=== PATIENT | female | born 1935 | race Caucasian/White ===

== ENCOUNTER → 2016-10-09 | Outpatient (CLI) | payer MEDICARE, OTHER ==
[~2016-10-09] MED LIST: DIURETIC; ESTR0.3T; OMEG1CAP26 PO; ONDAN4ODT PO; SIMV40TA2
--- NOTE | 2016-10-09 18:58 | Diagnostic Imaging Report ---
INDICATION: Digital mammogram bilateral screening. This study was compared to the prior exams of 10/07/15, 10/06/14 and 10/05/13. At this time, there are no current complaints. The current study was also evaluated with a Computer Aided Detection (CAD) system. FINDINGS: There are scattered fibroglandular densities in both breasts which could obscure a lesion. Overall, there does not appear to have been any significant change when compared to the prior exam. No primary or secondary sign of malignancy is noted. IMPRESSION: There is no radiographic evidence for malignancy. ACR BI-RADS Category 1: Negative. Result letter will be mailed to the patient. Note: At least 10% of breast cancer is not imaged by mammography. Dictated by: Dictated on workstation # [id number]
== END ==
LOC: RAD 09:23
PROVIDERS: ATTEND Nurse Practitioner Family
DX: Z12.31 Encounter for screening mammogram for malignant neoplasm of breast (principal)

== ENCOUNTER 2017-05-08 06:09 | Outpatient (CLI) | payer MEDICARE, OTHER ==
[~2017-05-08] VITALS: Ht 167.6 cm; Wt 68.9 kg
[~2017-05-08 06:09] MED LIST changes: -ESTR0.3T; +ESTR0.3T PO; -SIMV40TA2; +SIMV40TA2 PO
[2017-05-08] MEDS ORDERED: ASPI-586 PO (14:18)
[2017-05-08] MEDS ORDERED: TRIA1TAB3 PO (14:18)
[2017-05-08] MEDS ORDERED: CHOL100045 PO (14:18)
[2017-05-08] MEDS ORDERED: MELO15TA39 PO (14:18)
== END 2017-05-08 14:20 ==
LOC: PREOP 06:09
PROVIDERS: ATTEND Internal Medicine
DX: Z01.818 Encounter for other preprocedural examination (principal); Z12.11 Encounter for screening for malignant neoplasm of colon

== ENCOUNTER 2017-05-10 08:08 | Day surgery (SDC) | payer MEDICARE, OTHER ==
--- NOTE | 2017-05-03 09:17 | HISTORY AND PHYSICAL ---
DATE OF SERVICE: HISTORY OF PRESENT ILLNESS: The patient is an 81-year-old white female referred for screening colonoscopy by Dr. Fish. She last underwent screening colonoscopy per Dr. Castillo 12 years ago and reports she had no problems with the procedure and she does not believe she had any polyps at that time. She is not aware of any family history for colon cancer or colon polyps that she is aware of. She denies any change in bowel habit and has noted no bright red blood per rectum or melena. Appetite has been normal and her weight reportedly has been stable. PAST MEDICAL HISTORY: Hypertension and hyperlipidemia with no known history of coronary artery disease. She also has history of osteoarthritis. MEDICATIONS ON ADMISSION: Include Premarin 0.3 mg daily, Dyazide one tablet daily, simvastatin 40 mg daily, Meloxicam 7.5 mg b.i.d., fish oil 1200 mg 3 times daily and magnesium 150 mg b.i.d. SOCIAL HISTORY: She has no past drinking or smoking history. Retired. PHYSICAL EXAMINATION: GENERAL: Reveals a white female appearing younger than her stated age. VITAL SIGNS: Blood pressure was 150/64, weight 150.6 pounds. HEENT: Unremarkable. Sclerae are not icteric. She is a Mallampati class II. Oropharyngeal configuration with no exudate. NECK: Revealed no JVD, adenopathy or bruits. CHEST: Clear. CARDIOVASCULAR: Reveals regular rate and rhythm without murmur, S3 or S4. ABDOMEN: Soft, supple without mass, organomegaly or tenderness. PAST SURGICAL HISTORY: Significant for total abdominal hysterectomy for benign fibroids with dysfunctional uterine bleeding and a tubal ligation. ASSESSMENT AND PLAN: The patient was set up for screening colonoscopy on 05/10/2017. Prep instructions with Suprep kit were given and questions were answered. Discussed that if this colonoscopy revealed no evidence for neoplasia, would not likely be recommending future screening colonoscopy. I thank you for the referral of this pleasant lady. Job ID: [id number] DocumentID: [id number] Dictated Date: 05/01/2017 19:59:16 Enroute Controller Date: 05/01/2017 21:25:50 Dictated By: KARLEE INGRAM MD [facility] CENTERLaurence
[~2017-05-10] VITALS: Ht 167.6 cm; Wt 68.9 kg
[~2017-05-10 08:08] MED LIST changes: +ASPI-586 PO; +CHOL100045 PO; +MELO15TA39 PO; +TRIA1TAB3 PO
--- OUTSIDE RECORDS SUMMARY | 2017-05-10 08:12 | XMS REPORT | Continuity of Care Document ---
Author Author [facility] Organization [facility] Address Unknown Phone Unavailable Allergies Active Description Code Type Severity Reaction Onset Reported/Identified Relationship to Patient Clinical Status Yes NKDA NKDA Mild N/A 03/16/2009 Yes No Known Drug Allergies [id number] Drug Allergy Unknown N/ A 03/17/2009 Medications Problems Date Dx Coded Attending Type Code Diagnosis Diagnosed By 09/16/2010 Ot 558.9 09/16/2010 Ot 787.91 10/06/2014 Ot V76.12 10/06/2014 Ot V76.12 10/06/2014 Ot V76.12 10/06/2014 Ot V76.12 10/06/2014 DAVE LATHAM, NERISSA Gutiérrez Ot V76.12 02/12/2015 DAVE LATHAM, NERISSA Gutiérrez Ot V76.12 05/20/2015 Ot V76.12 05/20/2015 DAVE LATHAM, NERISSA Gutiérrez Ot V76.12 05/20/2015 NERISSA ACOSTA MD Ot V76.12 05/24/2015 KI LATHAM, JACKIE Nicole Ot 733.90 06/10/2015 KI LATHAM, JACKIE Nicole Ot 241.0 06/10/2015 KI LATHAM, JACKIE A Ot 782.2 06/23/2015 KI LATHAM, JACKIE A Ot 241.0 06/23/2015 KI LATHAM, JACKIE A Ot 782.2 07/08/2015 KI LATHAM, JACKIE A Ot 241.0 07/08/2015 KI ALTHAM, JACKIE A Ot 782.2 07/08/2015 KI LATHAM, JACKIE A Ot 241.0 07/08/2015 KI LATHAM, JACKIE A Ot 782.2 07/14/2015 KI LATHAM, JACKIE A Ot 733.90 08/02/2015 KI LATHAM, JACKIE A Ot 733.90 08/15/2015 KI LATHAM, JACKIE A Ot 241.0 08/15/2015 KI LATHAM, JACKIE Nicole Ot 782.2 10/14/2015 Ot V76.12 10/14/2015 DAVE LATHAM, NERISSA Gutiérrez Ot V76.12 10/14/2015 DAVE LATHAM, NERISSA Gutiérrez Ot V76.12 10/14/2015 KI LATHAM, JACKIE A Ot 733.90 10/14/2015 KI LATHAM, JACKIE A Ot 241.0 10/14/2015 KI LATHAM, JACKIE A Ot 782.2 10/14/2015 DEVYN JUNG SAMPLE CASE PORTER Ot Z12.31 11/02/2015 DEVYN JUNG SAMPLE CASE PORTER Ot Z12.31 04/04/2016 Ot V76.12 OTH SCREEN MAMMO-MALIGN NEOPLASM OF DOROTHY 04/04/2016 NERISSA ACOSTA MD Ot V76.12 OTH SCREEN MAMMO-MALIGN NEOPLASM OF DOROTHY 04/04/2016 DAVE LATHAM, NERISSA Gutiérrez Ot V76.12 OTH SCREEN MAMMO-MALIGN NEOPLASM OF DOROTHY 04/04/2016 KI LATHAM, JACKIE A Ot 733.90 BONE CARTILAGE DIS NOS 04/04/2016 KI LATHAM, JACKIE Nicole Ot 241.0 NONTOX UNINODULAR GOITER 04/04/2016 KI LATHAM, JACKIE Nicole Ot 782.2 LOCAL SUPRFICIAL SWELLNG 04/04/2016 DEVYN JUNGP Ot Z12.31 ENCNTR SCREEN MAMMOGRAM FOR MALIGNANT NE 04/04/2016 Ot V76.12 OTH SCREEN MAMMO-MALIGN NEOPLASM OF DOROTHY 04/04/2016 Ot V76.12 OTH SCREEN MAMMO-MALIGN NEOPLASM OF DOROTHY 04/04/2016 NERISSA ACOSTA MD Ot V76.12 OTH SCREEN MAMMO-MALIGN NEOPLASM OF DOROTHY 04/04/2016 NERISSA ACOSTA MD Ot V76.12 OTH SCREEN MAMMO-MALIGN NEOPLASM OF DOROTHY 04/04/2016 KI LATHAM, JACKIE A Ot 733.90 BONE CARTILAGE DIS NOS 04/04/2016 JACKIE EMERSON MD A Ot 241.0 NONTOX UNINODULAR GOITER 04/04/2016 JACKIE EMERSON MD Ot 782.2 LOCAL SUPRFICIAL SWELLNG 04/04/2016 DEVYN JUNG SAMPLE CASE PORTER Ot Z12.31 ENCNTR SCREEN MAMMOGRAM FOR MALIGNANT NE 04/27/2016 DEVYN JUNG SAMPLE CASE PORTER Ot E04.2 NONTOXIC MULTINODULAR GOITER 04/27/2016 DEVYN JUNGP Ot J35.9 CHRONIC DISEASE OF TONSILS AND ADENOIDS, 04/27/2016 DEVYN JUNG SAMPLE CASE PORTER Ot R22.2 LOCALIZED SWELLING, MASS AND LUMP, TRUNK 05/18/2016 DEVYN JUNGP Ot E04.2 NONTOXIC MULTINODULAR GOITER 05/18/2016 DEVYN JUNGP Ot J35.9 CHRONIC DISEASE OF TONSILS AND ADENOIDS, 05/18/2016 DEVYN JUNGP Ot R22.2 LOCALIZED SWELLING, MASS AND LUMP, TRUNK 10/04/2016 Ot V76.12 OTH SCREEN MAMMO-MALIGN NEOPLASM OF DOROTHY 10/04/2016 NERISSA ACOSTA MD Ot V76.12 OTH SCREEN MAMMO-MALIGN NEOPLASM OF DOROTHY 10/04/2016 NERISSA ACOSTA MD Ot V76.12 OTH SCREEN MAMMO-MALIGN NEOPLASM OF DOROTHY 10/04/2016 KI LATHAM, JACKIE Nicole Ot 733.90 BONE CARTILAGE DIS NOS 10/04/2016 KI LATHAM, JACKIE Nicole Ot 241.0 NONTOX UNINODULAR GOITER 10/04/2016 KI LATHAM, JACKIE Nicole Ot 782.2 LOCAL SUPRFICIAL SWELLNG 10/04/2016 DEVYN JUNG Ot Z12.31 ENCNTR SCREEN MAMMOGRAM FOR MALIGNANT NE 10/04/2016 DEVYN JUNGP Ot E04.2 NONTOXIC MULTINODULAR GOITER 10/04/2016 DEVYN JUNGP Ot J35.9 CHRONIC DISEASE OF TONSILS AND ADENOIDS, 10/04/2016 DEVYN JUNG Ot R22.2 LOCALIZED SWELLING, MASS AND LUMP, TRUNK 10/04/2016 Ot V76.12 OTH SCREEN MAMMO-MALIGN NEOPLASM OF DOROTHY 10/04/2016 Ot V76.12 OTH SCREEN MAMMO-MALIGN NEOPLASM OF DOROTHY 10/04/2016 NERISSA ACOSTA MD Ot V76.12 OTH SCREEN MAMMO-MALIGN NEOPLASM OF DOROTHY 10/04/2016 DAVE LATHAM, NERISSA Gutiérrez Ot V76.12 OTH SCREEN MAMMO-MALIGN NEOPLASM OF DOROTHY 10/04/2016 KI LATHAM, JACKIE Nicole Ot 733.90 BONE CARTILAGE DIS NOS 10/04/2016 KI LATHAM, JACKIE Nicole Ot 241.0 NONTOX UNINODULAR GOITER 10/04/2016 KI LATHAM, JACKIE Nicole Ot 782.2 LOCAL SUPRFICIAL SWELLNG 10/04/2016 DEVYN JUNG SAMPLE CASE PORTER Ot Z12.31 ENCNTR SCREEN MAMMOGRAM FOR MALIGNANT NE 10/04/2016 DEVYN JUNG SAMPLE CASE PORTER Ot E04.2 NONTOXIC MULTINODULAR GOITER 10/04/2016 DEVYN JUNG SAMPLE CASE PORTER Ot J35.9 CHRONIC DISEASE OF TONSILS AND ADENOIDS, 10/04/2016 DEVYN JUNG SAMPLE CASE PORTER Ot R22.2 LOCALIZED SWELLING, MASS AND LUMP, TRUNK 10/10/2016 DEVYN JUNG SAMPLE CASE PORTER Ot Z12.31 ENCNTR SCREEN MAMMOGRAM FOR MALIGNANT NE 10/10/2016 DEVYN JUNG SAMPLE CASE PORTER Ot Z12.31 ENCNTR SCREEN MAMMOGRAM FOR MALIGNANT NE 11/06/2016 DEVYN JUNG SAMPLE CASE PORTER Ot Z12.31 ENCNTR SCREEN MAMMOGRAM FOR MALIGNANT NE Procedures Results Encounters ACCT No. Visit Date/Time Discharge Status Pt. Type Provider Facility Loc./Unit Complaint [id number] 10/09/2016 09:23:00 2016 23:59:59 CLS Outpatient DEVYN JUNG [facility] RAD SCREENING [id number] 04/04/2016 10:31:00 2015 23:59:59 CLS Outpatient DEVYN JUNG [facility] RAD THYROID NODULES,L SUBMANDIBULAR MASS [id number] 10/07/2015 13:03:00 2015 23:59:59 CLS Outpatient DEVNY JUNGP [facility] RAD SCREENING [id number] 05/20/2015 08:17:00 2014 23:59:59 CLS Outpatient JACKIE EMERSON MD [facility] RAD STERNOCLAVICULAR JOINT EFFUISION, THYROID NODUELS [id number] 05/19/2015 14:37:00 2014 23:59:59 CLS Outpatient KI LATHAM, JACKIE Nicole [facility] RAD 733.90 DISORDER OF BONE,719.51 STIFFNESS OF JOINT [id number] 10/06/2014 10:31:00 2014 23:59:59 CLS Outpatient NERISSA ACOSTA MD [facility] RAD SCREENING [id number] 10/05/2013 09:52:00 2013 23:59:59 CLS Outpatient NERISSA ACOSTA MD [facility] RAD SCREENING [id number] 05/10/2017 09:15:00 PEN Preadpina INGRAM MD, KARELE Dang [facility] ENDO SCREENING [id number] 10/13/2012 10:04:00 Document Registration [id number] 10/10/2011 13:00:00 Document Registration [id number] 10/09/2010 09:36:00 Document Registration [id number] 09/16/2010 11:15:00 Document Registration [id number] 10/06/2009 09:59:00 Document Registration
[2017-05-10] MEDS ORDERED: 1/2 NS IV SOLUTION 1,000 ML IV STA (08:19)
[2017-05-10 08:29] VITALS: BP 187/74
[2017-05-10] MEDS ORDERED: LIDOCAINE JELLY 2% (XYLOCAINE) 5 ML TUBE MM PRN (08:30)
[2017-05-10] MEDS ORDERED: fentaNYL INJECTION 100 MCG/2 ML AMP ONE (09:44)
[2017-05-10] MEDS ORDERED: LIDOCAINE JELLY 2% (XYLOCAINE) 5 ML TUBE ONE (09:44)
[2017-05-10] MEDS ORDERED: MIDAZOLAM 2 MG/2 ML (VERSED) VIAL ONE ×2 (09:44)
[2017-05-10] MEDS: fentaNYL INJECTION 100 MCG/2 ML AMP IVP PRN ×2 (09:55→10:08)
[2017-05-10] MEDS: MIDAZOLAM 2 MG/2 ML (VERSED) VIAL IVP PRN ×2 (09:58→10:09)
[2017-05-10 10:45] VITALS: BP 162/71
[2017-05-10 11:15] VITALS: BP 160/75
[2017-05-10 12:10] VITALS: BP 160/75
--- NOTE | 2017-05-11 05:05 | OPERATIVE REPORT ---
DATE OF SERVICE: COLONOSCOPY SUMMARY INDICATION FOR THE PROCEDURE: Screening . The patient was placed in the left lateral decubitus position. Prior to undergoing colonoscopy, digital rectal evaluation was performed. Anal sphincter tone was normal and the perianal reflex was intact. The colonoscope was inserted into the rectum under direct visualization, could only advanced to what was likely the mid sigmoid colon due to severe diverticular disease with corkscrewing of the colon, haustral hypertrophy, and narrowing compatible with a benign partial stricture. There was no evidence to suggest acute diverticulitis. The patient denies any problems with abdominal bloating or abdominal pain. No other abnormalities were noted in the rectum and the visualized portion of the sigmoid colon. ASSESSMENT: Severe diverticular disease with likely benign partial stricture formation noted in the mid sigmoid colon without evidence for acute diverticulitis. Considering this patient's age, significant risk for perforation even with barium enema evaluation in an individual who has no family history for colon cancer and a previous colonoscopy that was unremarkable 10 years ago. I would not advocate future colonoscopy barium evaluation. I discussed the fact that obviously could not guarantee that significant pathology including cancer was not present in the portion of her colon not visualized; however, her risk is extremely small and risks of further investigation outweigh potential benefits in my estimation. The patient was quite comfortable with "leaving well enough alone." We did discussed signs and symptoms of intestinal obstruction which she denies. I thank you for the referral of this pleasant lady. Job ID: [id number] DocumentID: [id number] Dictated Date: 05/10/2017 13:15:20 Construction Job Titles Date: 05/11/2017 00:57:29 Dictated By: KARLEE INGRAM MD MTDD
== END 2017-05-10 12:10 | disposition home or self-care (01) ==
LOC: ENDO 08:08
PROVIDERS: ATTEND Internal Medicine
DX: Z12.11 Encounter for screening for malignant neoplasm of colon (principal); K57.30 Diverticulosis of large intestine without perforation or abscess without bleeding; I10 Essential (primary) hypertension; E78.5 Hyperlipidemia, unspecified; M19.91 Primary osteoarthritis, unspecified site; Z79.899 Other long term (current) drug therapy

== ENCOUNTER → 2017-10-15 | Outpatient (CLI) | payer MEDICARE, OTHER ==
--- NOTE | 2017-10-15 12:08 | Diagnostic Imaging Report ---
Indication: Routine screening. Comparison: Comparison is made prior study from 10/09/2016 and 10/07/2015. The current study was also evaluated with a Computer Aided Detection (CAD) system. Findings: Both breasts demonstrated moderate parenchymal heterogeneity and increased density, limiting the sensitivity of mammography. Benign-appearing parenchymal and vascular calcifications are noted bilaterally. Benign-appearing nodular densities are identified in the upper outer aspects of each breast, likely representing intramammary lymph nodes. No spiculated mass or malignant-appearing microcalcifications are seen. The axillae are unremarkable. Impression: BI-RADS category 2 No mammographic features suspicious for malignancy are identified. ACR BI-RADS Category 2: Benign findings. Result letter will be mailed to the patient. Note: At least 10% of breast cancer is not imaged by mammography. Dictated on workstation # [id number]
== END ==
LOC: RAD 09:53
PROVIDERS: ATTEND Nurse Practitioner Family
DX: Z12.31 Encounter for screening mammogram for malignant neoplasm of breast (principal)
CPT/HCPCS: 77067

== ENCOUNTER 2019-06-05 12:10 | Emergency (ER) | payer MEDICARE, OTHER ==
[~2019-06-05] VITALS: Ht 66.5 cm; Wt 65.5 kg
[2019-06-05 12:47] LABS: BASOPHILS % (AUTO) 0 % (0-10); EOSINOPHILS # (AUTO) 0.1 10^3/uL (0.0-0.3); EOSINOPHILS % (AUTO) 1 % (0-10); HEMATOCRIT 47 % (35-52); HEMOGLOBIN 14.9 G/DL (11.5-16.0); LYMPHOCYTES # (AUTO) 1.7 X 10^3 (1.0-4.0); LYMPHOCYTES % (AUTO) 15 % (12-44); MEAN CORPUSCULAR HEMOGLOBIN 27 PG (25-34); MEAN CORPUSCULAR HGB CONC 32 G/DL (32-36); MEAN CORPUSCULAR VOLUME 85 FL (80-99); MEAN PLATELET VOLUME 9.6 FL (7.4-10.4); MONOCYTES # (AUTO) 1.3 X 10^3 (0.0-1.0); MONOCYTES % (AUTO) 12 % (0-12); NEUTROPHILS # (AUTO) 7.8 X 10^3 (1.8-7.8); NEUTROPHILS % (AUTO) 72 % (42-75); PLATELET COUNT 245 10^3/uL (130-400); RED CELL DISTRIBUTION WIDTH 13.6 % (10.0-14.5); WHITE BLOOD COUNT 10.8 10^3/uL (4.3-11.0)
[2019-06-05 12:55] LABS: BILIRUBIN,URINE NEGATIVE (NEGATIVE); CLARITY,URINE CLEAR; COLOR,URINE YELLOW; GLUCOSE, URINE (UA) NEGATIVE (NEGATIVE); KETONES,URINE NEGATIVE (NEGATIVE); LEUKOCYTE ESTERASE ,URINE 1+ (NEGATIVE); NITRITE,URINE NEGATIVE (NEGATIVE); PH,URINE 7 (5-9); PROTEIN,URINE 1+ (NEGATIVE); UROBILINOGEN,URINE NORMAL (NORMAL)
[2019-06-05 12:59] LABS: PROTHROMBIN TIME PATIENT 13.6 SEC (12.2-14.7)
[2019-06-05 13:04] LABS: CALCIUM 9.6 MG/DL (8.5-10.1); CREATININE SERUM 1.15 MG/DL (0.60-1.30); POTASSIUM 3.8 MMOL/L (3.6-5.0)
[2019-06-05 13:06] LABS: BACTERIA,URINE NEGATIVE /HPF; HYALINE CASTS, URINE 0-2 /LPF; WBC,URINE 0-2 /HPF
--- NOTE | 2019-06-05 13:25 | ED GI ---
General Chief Complaint: Abdominal/GI Problems Stated Complaint: NVD Nursing Triage Note: PT ARRIVED PER EMS, PT CO OF NAUSEA, VOMITING AND DIARRHEA INSURANCE CLAIMS ASSISTANT, PT HAS SL IN IV IN PLACE IN L AC BY EMS NS INFUSING. PT INC OF STOOL AT THIS X. PT IS A AND O X 3 Sepsis Screen: No Definite Risk Source of Information: Patient Exam Limitations: No Limitations History of Present Illness Date Seen by Provider: Jun 05, 2019 Time Seen by Provider: 12:18 Initial Comments Here with report of acute episode of nausea, vomiting and diarrhea. Also incontinent of urine. Patient reports that she was standing there when all of a sudden this happened. She reports that she had gone to [employer] and bought pancakes. After eating the pancakes she had the episode. EMS was summoned because she was quite weak and brought her here. Per EMS, Lauren reports that none of this happened like that and the daughter is concerned about the patient's ability to make her own decisions and reportedly wanted consideration for placement in a jail. Patient denies any discomfort currently except for she is in her pants that she had the incontinent stool in. Timing/Duration: 1/2 Hour, Gone Now Severity/Quality: Moderate, Cramping Location: Generalized Abdomen Radiation: No Radiation Activities at Onset: None Modifying Factors: Worsens With Eating; Improves With Resting Associated Symptoms: No Back Pain, No Chest Pain, No Fever/Chills; Nausea/Vomiting; No Shortness of Air; Weakness Allergies and Home Medications Allergies Coded Allergies: No Known Drug Allergies (Verified , 03/17/09) Uncoded Allergies: NKDA (Allergy, Mild, 03/16/09) Home Medications Cholecalciferol (Vitamin D3) 1,000 Unit Tablet, 1,000 UNIT PO DAILY, (Reported) Estrogens Conjugated 0.3 Mg Tab, 0.3 MG PO DAILY, (Reported) Meloxicam 15 Mg Tablet, 7.5 MG PO BID, (Reported) [place]-3/Dha/Epa/Fish Oil 1 Each Capsule, 2 EACH PO BID, (Reported) Simvastatin 40 Mg Tablet, 40 MG PO HS, (Reported) Triamterene/Hydrochlorothiazid 1 Each Tablet, 1 EACH PO DAILY, (Reported) Patient Home Medication List Home Medication List Reviewed: Yes Review of Systems Review of Systems Constitutional: see HPI; No chills, No fever EENTM: No Symptoms Reported Respiratory: No Symptoms Reported Cardiovascular: No Symptoms Reported Gastrointestinal: Abdominal Pain, Diarrhea, Nausea, Vomiting Genitourinary: No Symptoms Reported Musculoskeletal: no symptoms reported Skin: no symptoms reported Psychiatric/Neurological: Weakness, Other (confusion) Endocrine: No Symptoms Reported All Other Systems Reviewed Negative Unless Noted: Yes Past Oqduofe-Qmekkw-Cerzpr Hx Past Med/Social Hx: Reviewed Nursing Past Med/Soc Hx Patient Social History Alcohol Use: Denies Use Recreational Drug Use: No Smoking Status: Never a Smoker Recent Foreign Travel: No Contact w/Someone Who Travel: No Recent Infectious Disease Expo: No Recent Hopitalizations: No Seasonal Allergies Seasonal Allergies: No Past Medical History Surgeries: Yes Hysterectomy, Tubal Ligation Cardiac: Yes Hypertension Reproductive Disorders: No Gastrointestinal: No Musculoskeletal: No Arthritis Family Medical History Reviewed Nursing Family Hx No Pertinent Family Hx Physical Exam Vital Signs Vital Signs - First Documented 06/05/19 12:10 Temp 35.5 Pulse 76 Resp 16 B/P (MAP) 171/94 (119) Capillary Refill : Less Than 3 Seconds Height/Weight/BMI Height: 5'6.00" Weight: 152lbs. 0.0oz. 68.785435pq; 148.00 BMI Method: General Appearance: WD/WN, no apparent distress HEENT: PERRL/EOMI, pharynx normal Neck: full range of motion, supple Respiratory: lungs clear, normal breath sounds Cardiovascular: regular rate, rhythm, no murmur Gastrointestinal: non tender, soft Extremities: non-tender, normal inspection Back: normal inspection, no CVA tenderness, no vertebral tenderness Neurologic/Psychiatric: alert, oriented x 3 Skin: normal color, warm/dry Focused Exam Lactate Level 06/05/19 12:55: Lactic Acid Level 1.19 Lactic Acid Level Laboratory Tests Test 06/05/19 12:55 Lactic Acid Level 1.19 MMOL/L (0.50-2.00) Progress/Results/Core Measures Results/Orders Lab Results Laboratory Tests Test 06/05/19 12:36 06/05/19 12:50 06/05/19 12:55 Range/Units White Blood Count 10.8 4.3-11.0 10^3/uL Red Blood Count 5.56 4.35-5.85 10^6/uL Hemoglobin 14.9 11.5-16.0 G/DL Hematocrit 47 35-52 % Mean Corpuscular Volume 85 80-99 FL Mean Corpuscular Hemoglobin 27 25-34 PG Mean Corpuscular Hemoglobin Concent 32 32-36 G/DL Red Cell Distribution Width 13.6 10.0-14.5 % Platelet Count 245 130-400 10^3/uL Mean Platelet Volume 9.6 7.4-10.4 FL Neutrophils (%) (Auto) 72 42-75 % Lymphocytes (%) (Auto) 15 12-44 % Monocytes (%) (Auto) 12 0-12 % Eosinophils (%) (Auto) 1 0-10 % Basophils (%) (Auto) 0 0-10 % Neutrophils # (Auto) 7.8 1.8-7.8 X 10^3 Lymphocytes # (Auto) 1.7 1.0-4.0 X 10^3 Monocytes # (Auto) 1.3 H 0.0-1.0 X 10^3 Eosinophils # (Auto) 0.1 0.0-0.3 10^3/uL Basophils # (Auto) 0.0 0.0-0.1 10^3/uL Prothrombin Time 13.6 12.2-14.7 SEC INR Comment 1.0 0.8-1.4 Activated Partial Thromboplast Time 21 L 24-35 SEC Sodium Level 141 135-145 MMOL/L Potassium Level 3.8 3.6-5.0 MMOL/L Chloride Level 105 98-107 MMOL/L Carbon Dioxide Level 26 21-32 MMOL/L Anion Gap 10 5-14 MMOL/L Blood Urea Nitrogen 21 H 7-18 MG/DL Creatinine 1.15 0.60-1.30 MG/DL Estimat Glomerular Filtration Rate 45 BUN/Creatinine Ratio 18 Glucose Level 117 H 70-105 MG/DL Calcium Level 9.6 8.5-10.1 MG/DL Corrected Calcium 9.6 8.5-10.1 MG/DL Total Bilirubin 1.0 0.1-1.0 MG/DL Aspartate Amino Transf (AST/SGOT) 23 5-34 U/L Alanine Aminotransferase (ALT/SGPT) 19 0-55 U/L Alkaline Phosphatase 92 40-136 U/L Total Protein 7.0 6.4-8.2 GM/DL Albumin 4.0 3.2-4.5 GM/DL Urine Color YELLOW Urine Clarity CLEAR Urine pH 7 5-9 Urine Specific Section 1.010 L 1.016-1.022 Urine Protein 1+ H NEGATIVE Urine Glucose (UA) NEGATIVE NEGATIVE Urine Ketones NEGATIVE NEGATIVE Urine Nitrite NEGATIVE NEGATIVE Urine Bilirubin NEGATIVE NEGATIVE Urine Urobilinogen NORMAL NORMAL MG/DL Urine Leukocyte Esterase 1+ H NEGATIVE Urine RBC (Auto) NEGATIVE NEGATIVE Urine RBC NONE /HPF Urine WBC 0-2 /HPF Urine Squamous Epithelial Cells 2-5 /HPF Urine Crystals NONE /LPF Urine Bacteria NEGATIVE /HPF Urine Casts PRESENT /LPF Urine Hyaline Casts 0-2 H /LPF Urine Mucus NEGATIVE /LPF Urine Culture Indicated NO Lactic Acid Level 1.19 0.50-2.00 MMOL/L My Orders Orders - FLY PASTOR MD Cbc With Automated Diff (06/05/19 12:37) Comprehensive Metabolic Panel (06/05/19 12:37) Blood Culture (06/05/19 12:37) Sputum Culture (06/05/19 12:37) Urinalysis (06/05/19 12:37) Urine Culture (06/05/19 12:37) Protime With Inr (06/05/19 12:37) Partial Thromboplastin Time (06/05/19 12:37) Chest 1 View, Ap/Pa Only (06/05/19 12:37) Ed Iv/Invasive Line Start (06/05/19 12:37) Vital Signs Adult Sepsis Patie Q15M (06/05/19 12:37) O2 (06/05/19 12:37) Remove Rings In Anticipation O (06/05/19 12:37) Lactic Acid Analyzer (06/05/19 12:37) Straight Cath For Spec.-Adult (06/05/19 12:37) Vital Signs/I&O 06/05/19 12:10 Temp 35.5 Pulse 76 Resp 16 B/P (MAP) 171/94 (119) Blood Pressure Mean: 119 Progress Progress Note : Progress Note Seen and evaluated. IV, labs, UA via straight catheter and completion of 1 L of normal saline initiated by EMS ordered. Patient did receive Zofran 4 mg IV and this seems to have helped quite a bit. Monitor patient. 1330: Labs and x-ray reviewed. No acute findings. Patient is overall doing much better. She is tolerating sips without difficulty. I did discuss the case with Dr. Fish after discussion with the daughter. The daughters very concerned about patient's capability at home. The daughter did mention that they are pursuing assisted living. The daughter asked about home health which I passed on to Dr. Fish. She will get that set up. Discharge home with return precautions. Patient and family verbalize understanding instructions and agreement with plan. Diagnostic Imaging Diagonstic Imaging: Xray Plain Films/CT/US/NM/MRI: chest Comments [facility]. [place], [place] NAME: JALIL BERMUDEZ [facility] REC#: [id number] PT STATUS: REG ER : 1935 PHYSICIAN: FLY PASTOR MD ADMIT DATE: 06/05/19/ER Draft Date of Exam:06/05/19 CHEST 1 VIEW, AP/PA ONLY INDICATION: Nausea, vomiting and diarrhea. TIME OF EXAM: 1:11 PM COMPARISON: Correlation is made with prior chest from 05/20/2015. FINDINGS: The heart size is normal. The pulmonary vascularity is unremarkable. The lungs are clear. No infiltrate, effusion or pneumothorax is detected. IMPRESSION: No acute cardiopulmonary process is detected. Dictated on workstation # [id number] Dict: 06/05/19 1329 Trans: 06/05/19 1332 [id number] Interpreted by: SHANDRA SOTO MD Electronically signed by: Reviewed: Reviewed by Me Departure Impression Primary Impression: Diarrhea Qualified Codes: R19.7 - Diarrhea, unspecified Additional Impression: Nausea and vomiting Qualified Codes: R11.2 - Nausea with vomiting, unspecified Disposition: 01 HOME, SELF-CARE Condition: Improved Departure-Patient Inst. Decision time for Depature: 13:34 Referrals: JACKIE FISH MD (PCP/Family) Primary Care Physician Patient Instructions: Diarrhea in Adolescents and Adults, Nausea and Vomiting, Adult (DC) Add. Discharge Instructions: All discharge instructions reviewed with patient and/or family. Voiced understanding. Clear liquid or light diet for the next 24 hours and then advance as tolerated. Follow-up with Dr. Fish or her staff for recheck and further evaluation early next week. The case was discussed with Dr. Fish and she is working on setting up home health. Continue home medications as previously prescribed. Take other medications as directed. Return for worsening, fever, vomiting, weakness, breathing problems or other concerns as needed. Scripts Ondansetron (Ondansetron Odt) 4 Mg Tab.rapdis 4 MG PO Q6H PRN for NAUSEA/VOMITING, #12 TAB 0 Refills Prov: FLY PASTOR MD 06/05/19 Copy Copies To 1: JACKIE FISH MD, TIMOTHY D MD Jun 05, 2019 13:25
--- NOTE | 2019-06-05 13:30 | NUR ---
NS FROM EMS INFUSED 1000CC
--- NOTE | 2019-06-05 13:32 | Diagnostic Imaging Report ---
INDICATION: Nausea, vomiting and diarrhea. TIME OF EXAM: 1:11 PM COMPARISON: Correlation is made with prior chest from 05/20/2015. FINDINGS: The heart size is normal. The pulmonary vascularity is unremarkable. The lungs are clear. No infiltrate, effusion or pneumothorax is detected. IMPRESSION: No acute cardiopulmonary process is detected. Dictated by: Dictated on workstation # [id number]
[2019-06-05] MEDS ORDERED: ONDA4TAB11 PO (13:35)
[2019-06-05 14:29] VITALS: BP 150/69
== END 2019-06-05 14:29 | disposition home or self-care (01) ==
LOC: EDUNIT# 12:13 → ER 12:16
DX: R19.7 Diarrhea, unspecified (principal); R11.2 Nausea with vomiting, unspecified; I10 Essential (primary) hypertension; Z90.710 Acquired absence of both cervix and uterus; Z98.51 Tubal ligation status
CPT/HCPCS: 36415; 51701; 71045; 80053; 81000; 83605; 85025; 85610; 85730; 87040; 87088

== ENCOUNTER → 2019-06-10 | Outpatient (CLI) | payer MEDICARE, OTHER ==
[~2019-06-10] MED LIST changes: +ONDA4TAB11 PO
--- NOTE | 2019-06-10 13:50 | Diagnostic Imaging Report ---
PROCEDURE: MR imaging of the brain without contrast. TECHNIQUE: Multiplanar, multisequence MR imaging of the brain was performed without contrast. INDICATION: Memory loss. COMPARISON: There are no prior studies available for comparison. FINDINGS: There is no mass, shift of the midline or hemorrhage to suggest an acute intracranial abnormality. There is no abnormal signal arising from the brain on the diffusion series to indicate an area of acute ischemia either. The FLAIR series does show focal and diffuse areas of increased signal in the periventricular white matter bilaterally. These findings are nonspecific but may be related to encephalomalacia from microvascular ischemia. There is also cortical atrophy. The degree of atrophy is consistent with the patient's age. The ventricles themselves do seem somewhat prominent due to the underlying senescent changes. The sella is not enlarged and the expected carotid flow voids are evident bilaterally. The orbits are symmetrical and within normal limits. The sinuses are generally clear. The seventh and eighth nerve complexes are unremarkable. IMPRESSION: 1. There is no evidence for an acute intracranial abnormality. 2. There are senescent changes including cortical atrophy and periventricular encephalomalacia. Dictated by: Dictated on workstation # [id number]
== END ==
LOC: RAD 12:22
PROVIDERS: ATTEND Nurse Practitioner Family
DX: G93.89 Other specified disorders of brain (principal); R41.3 Other amnesia
CPT/HCPCS: 70551

== ENCOUNTER 2019-07-27 13:12 | Emergency (ER) | payer MEDICARE, OTHER ==
[~2019-07-27] VITALS: Ht 168 cm; Wt 65.0 kg
[2019-07-27] MEDS ORDERED: LACTATED RINGERS 1,000 ML IV ONE (13:19)
[2019-07-27 13:28] LABS: HEMATOCRIT 46 % (35-52); HEMOGLOBIN 15.2 G/DL (11.5-16.0); MEAN CORPUSCULAR HEMOGLOBIN 27 PG (25-34); MEAN CORPUSCULAR HGB CONC 33 G/DL (32-36); MEAN CORPUSCULAR VOLUME 83 FL (80-99); PLATELET COUNT 430 10^3/uL (130-400); RED CELL DISTRIBUTION WIDTH 13.3 % (10.0-14.5); WHITE BLOOD COUNT 15.4 10^3/uL (4.3-11.0)
[2019-07-27 13:29] LABS: BASOPHILS # (AUTO) 0.1 10^3/uL (0.0-0.1); BASOPHILS % (AUTO) 0 % (0-10); EOSINOPHILS % (AUTO) 0 % (0-10); LYMPHOCYTES # (AUTO) 2.4 X 10^3 (1.0-4.0); LYMPHOCYTES % (AUTO) 16 % (12-44); MEAN PLATELET VOLUME 8.8 FL (7.4-10.4); MONOCYTES # (AUTO) 1.8 X 10^3 (0.0-1.0); MONOCYTES % (AUTO) 12 % (0-12); NEUTROPHILS # (AUTO) 11.1 X 10^3 (1.8-7.8); NEUTROPHILS % (AUTO) 72 % (42-75)
[2019-07-27] MEDS ORDERED: ONDANSETRON 4 MG/2 ML (SDV) Z0FRAN IVP ONE (13:30)
[2019-07-27 13:42] LABS: PROTHROMBIN TIME PATIENT 13.4 SEC (12.2-14.7)
--- NOTE | 2019-07-27 13:44 | ED General ---
General Chief Complaint: General Problems/Pain Stated Complaint: GENERAL FATIGUE Nursing Triage Note: PT TO [facility] WITH CC OF WEAKNESS FOR ABOUT A WEEK. PT WAS DISCHARGED FROM [facility] ON SATURDAY FOR MEMORY ISSUES. LOW GRADE FEVER TODAY WITH GENERAL FATIGUE. Nursing Sepsis Screen: No Definite Risk Source of Information: Patient (PT IS LIMITED HISTORIAN--STATES SHE DOES NOT KNOW WHY SHE IS HERE. STATES SHE FEELS FINE.), EMS History of Present Illness Date Seen by Provider: Jul 27, 2019 Time Seen by Provider: 13:15 Initial Comments PT ARRIVES VIA EMS FROM HOME--NO FAMILY ARRIVE WITH PT, OR CALL ABOUT PT PT LIVES ALONE, DAUGHTER LIVES NEARBY PER EMS: DAUGHTER CALLED EMS AND REPORTED THE FOLLOWING: C/O FATIGUE "FOR 1 WEEK " --NO DIFFERENT TODAY, HAS NOT SOUGHT CARE UNTIL TODAY C/O NAUSEA AND VOMITED X 1--BEGAN TODAY HAD FEVER OF 99.4 --NOTICED TODAY NO ABDOMINAL PAIN NO PROBLEMS URINATING. NO PAIN ANYWHERE--NO HEADACHE, NO BODY ACHES, NO CHEST PAIN, NO BACK PAIN NO DIARRHEA HAS A VERY SLIGHT NON-PRODUCTIVE COUGH NO SHORTNESS OF BREATH EMS REPORT THAT PT WAS DISMISSED FROM [facility] ON Saturday07/24/19 FOR MEMORY PROBLEMS IS UNKNOWN WHAT MEDICATIONS SHE TAKES, NO LIST OR MEDICATIONS WERE SENT WITH PT. PER MED RECONCILIATION, PT WAS STARTED ON [facility] ON 07/20/19 PT STATES SHE DOES NOT KNOW WHY SHE IS HERE. STATES SHE FEELS FINE. STATES SHE TOLD HER DAUGHTER SHE WAS TIRED AND DIDN'T FEEL GOOD, AND THEN HER DAUGHTER CALLED THE AMBULANCE. PCP: DR. EMERSON Allergies and Home Medications Allergies Coded Allergies: No Known Drug Allergies (Verified , 03/17/09) Uncoded Allergies: NKDA (Allergy, Mild, 03/16/09) Home Medications Cholecalciferol (Vitamin D3) 1,000 Unit Tablet, 1,000 UNIT PO DAILY, (Reported) Estrogens Conjugated 0.3 Mg Tab, 0.3 MG PO DAILY, (Reported) Meloxicam 15 Mg Tablet, 7.5 MG PO BID, (Reported) Lewellen-3/Dha/Epa/Fish Oil 1 Each Capsule, 2 EACH PO BID, (Reported) Ondansetron 4 Mg Tab.rapdis, 4 MG PO Q6H PRN for NAUSEA/VOMITING Prescribed by: FLY PASTOR on 06/05/19 1335 Simvastatin 40 Mg Tablet, 40 MG PO HS, (Reported) Sulfamethoxazole/Trimethoprim 1 Each Tablet, 1 EACH PO BID Prescribed by: MALI PAINTING on 07/27/19 1622 Triamterene/Hydrochlorothiazid 1 Each Tablet, 1 EACH PO DAILY, (Reported) Patient Home Medication List Home Medication List Reviewed: Yes Review of Systems Review of Systems Constitutional: see HPI, fever, malaise, weakness EENTM: no symptoms reported; No nose congestion, No throat pain Respiratory: see HPI, cough; No short of breath, No wheezing Cardiovascular: no symptoms reported; No chest pain, No edema, No palpitations, No syncope Gastrointestinal: see HPI; No abdominal pain, No constipation, No diarrhea; nausea; No vomiting Genitourinary: no symptoms reported; No decreased output Musculoskeletal: no symptoms reported; No back pain Skin: no symptoms reported Psychiatric/Neurological: No Symptoms Reported; Denies Headache, Denies Numbness, Denies Paresthesia; Pre-Existing Deficit (MEMORY PROBLEMS); Denies Tingling, Denies Weakness Hematologic/Lymphatic: No Symptoms Reported Immunological/Allergic: no symptoms reported Past Vrukack-Bofwnt-Qntrof Hx Patient Social History Alcohol Use: Denies Use Recreational Drug Use: No Smoking Status: Never a Smoker Recent Foreign Travel: No Contact w/Someone Who Travel: No Recent Infectious Disease Expo: No Recent Hopitalizations: No Seasonal Allergies Seasonal Allergies: No Past Medical History Surgeries: Yes (HYST/BSO; CHOLECYSTECTOMY 2008; COLONOSCOPIES--LAST ONE 05/10/17--INCOMPLETE DUE TO STRICTURE FROM SEVERE DIVERTICULAR DISEASE. ) Gallbladder, Hysterectomy, Oophorectomy, Tubal Ligation Respiratory: No Cardiac: Yes High Cholesterol, Hypertension Neurological: Yes (? DEMENTIA ? 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 CHOLECYSTECTOMY 2008) Diverticulosis, Gall Bladder Disease Musculoskeletal: Yes Arthritis Endocrine: No HEENT: No Cancer: No Psychosocial: No Integumentary: No Blood Disorders: No Family Medical History No Pertinent Family Hx Physical Exam Vital Signs Vital Signs - First Documented 07/27/19 13:21 Temp 36.7 Pulse 83 Resp 16 B/P (MAP) 112/68 (83) Pulse Ox 97 O2 Delivery Room Air Capillary Refill : Less Than 3 Seconds Height, Weight, BMI Height: 5'6.00" Weight: 152lbs. 0.0oz. [id number]; 23.00 BMI Method: General Appearance: No Apparent Distress, WD/WN, Other (DOES NOT APPEAR ILL OR TO BE IN ANY DISCOMFORT OR DISTRESS. MOVES WITHOUT DIFFICULTY. SMILING, TALKATIVE. ) HEENT: PERRL/EOMI, Normal ENT Inspection, Pharynx Normal, Moist Mucous Membranes Neck: Full Range of Motion, Normal Inspection, Non Tender, Supple Respiratory: Normal Breath Sounds, No Accessory Muscle Use, No Respiratory Distress Cardiovascular: Regular Rate, Rhythm, No Edema, No JVD, No Murmur, Normal Peripheral Pulses Gastrointestinal: No Organomegaly, No Pulsatile Mass, Non Tender, Soft, Abnormal Bowel Sounds (HYPERACTIVE) Back: Normal Inspection, No CVA Tenderness Extremity: Normal Capillary Refill, Normal Inspection, Normal Range of Motion, Non Tender, No Calf Tenderness, No Pedal Edema Neurologic/Psychiatric: Alert, Oriented x3, No Motor/Sensory Deficits, Normal 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 ) Focused Exam Lactate Level 07/27/19 13:35: Lactic Acid Level 2.22*H 07/27/19 15:35: Lactic Acid Level 1.78 Lactic Acid Level Laboratory Tests Test 07/27/19 15:35 Lactic Acid Level 1.78 MMOL/L (0.50-2.00) Progress/Results/Core Measures Suspected Sepsis Recent Fever Within 48 Hours: No Infection Criteria Present: None New/Unexplained Altered Menta: No Sepsis Screen: No Definite Risk SIRS Temperature: Pulse: 83 Respiratory Rate: 16 Laboratory Tests 07/27/19 13:20: White Blood Count 15.4H Blood Pressure 112 /68 Mean: 83 07/27/19 13:35: Lactic Acid Level 2.22*H 07/27/19 15:35: Lactic Acid Level 1.78 Laboratory Tests 07/27/19 13:20: Creatinine 1.76H, INR Comment 1.0, Platelet Count 430H, Total Bilirubin 0.9 Results/Orders Lab Results Laboratory Tests Test 07/27/19 13:20 07/27/19 13:35 07/27/19 15:35 Range/Units White Blood Count 15.4 H 4.3-11.0 10^3/uL Red Blood Count 5.57 4.35-5.85 10^6/uL Hemoglobin 15.2 11.5-16.0 G/DL Hematocrit 46 35-52 % Mean Corpuscular Volume 83 80-99 FL Mean Corpuscular Hemoglobin 27 25-34 PG Mean Corpuscular Hemoglobin Concent 33 32-36 G/DL Red Cell Distribution Width 13.3 10.0-14.5 % Platelet Count 430 H 130-400 10^3/uL Mean Platelet Volume 8.8 7.4-10.4 FL Neutrophils (%) (Auto) 72 42-75 % Lymphocytes (%) (Auto) 16 12-44 % Monocytes (%) (Auto) 12 0-12 % Eosinophils (%) (Auto) 0 0-10 % Basophils (%) (Auto) 0 0-10 % Neutrophils # (Auto) 11.1 H 1.8-7.8 X 10^3 Lymphocytes # (Auto) 2.4 1.0-4.0 X 10^3 Monocytes # (Auto) 1.8 H 0.0-1.0 X 10^3 Eosinophils # (Auto) 0.0 0.0-0.3 10^3/uL Basophils # (Auto) 0.1 0.0-0.1 10^3/uL Neutrophils % (Manual) 72 % Lymphocytes % (Manual) 16 % Monocytes % (Manual) 3 % Eosinophils % (Manual) 9 % Basophils % (Manual) 0 % Band Neutrophils 0 % Blood Morphology Comment NORMAL Prothrombin Time 13.4 12.2-14.7 SEC INR Comment 1.0 0.8-1.4 Activated Partial Thromboplast Time 27 24-35 SEC Sodium Level 134 L 135-145 MMOL/L Potassium Level 5.0 3.6-5.0 MMOL/L Chloride Level 98 98-107 MMOL/L Carbon Dioxide Level 24 21-32 MMOL/L Anion Gap 12 5-14 MMOL/L Blood Urea Nitrogen 54 H 7-18 MG/DL Creatinine 1.76 H 0.60-1.30 MG/DL Estimat Glomerular Filtration Rate 28 BUN/Creatinine Ratio 31 Glucose Level 127 H 70-105 MG/DL Calcium Level 9.9 8.5-10.1 MG/DL Corrected Calcium 9.7 8.5-10.1 MG/DL Magnesium Level 2.5 H 1.6-2.4 MG/DL Total Bilirubin 0.9 0.1-1.0 MG/DL Aspartate Amino Transf (AST/SGOT) 25 5-34 U/L Alanine Aminotransferase (ALT/SGPT) 28 0-55 U/L Alkaline Phosphatase 86 40-136 U/L Total Creatine Kinase 106 29-168 U/L Creatine Kinase MB 5.4 <6.6 NG/ML Myoglobin 238.8 H 10.0-92.0 NG/ML Troponin I < 0.028 <0.028 NG/ML B-Type Natriuretic Peptide 16.4 <100.0 PG/ML Total Protein 7.5 6.4-8.2 GM/DL Albumin 4.2 3.2-4.5 GM/DL Amylase Level 70 25-125 U/L Lipase 62 8-78 U/L [facility] [place] Testing 1.45 0.35-4.94 UIU/ML Lactic Acid Level 2.22 *H 1.78 0.50-2.00 MMOL/L Urine Color YELLOW Urine Clarity CLEAR Urine pH 6.0 5-9 Urine Specific [place] 1.010 L 1.016-1.022 Urine Protein NEGATIVE NEGATIVE Urine Glucose (UA) NEGATIVE NEGATIVE Urine Ketones NEGATIVE NEGATIVE Urine Nitrite POSITIVE NEGATIVE Urine Bilirubin NEGATIVE NEGATIVE Urine Urobilinogen 0.2 < = 1.0 MG/DL Urine Leukocyte Esterase 1+ H NEGATIVE Urine RBC (Auto) NEGATIVE NEGATIVE Urine RBC RARE /HPF Urine WBC 5-10 H /HPF Urine Squamous Epithelial Cells NONE /HPF Urine Crystals NONE /LPF Urine Bacteria LARGE H /HPF Urine Casts NONE /LPF Urine Mucus NEGATIVE /LPF Urine Culture Indicated YES Micro Results Microbiology 07/27/19 Influenza Types A,B Antigen (SHANNON) - Final, Complete My Orders Orders - MALI PAINTING DO Ed Iv/Invasive Line Start (07/27/19 13:19) Ekg Tracing (07/27/19 13:19) Catheter(Urinary) Insert & Ass 03,15 (07/27/19 13:19) Monitor-Rhythm Ecg Trace Only (07/27/19 13:19) Chest 1 View, Ap/Pa Only (07/27/19 13:19) Amylase (07/27/19 13:19) BNP (07/27/19 13:19) Cbc With Automated Diff (07/27/19 13:19) Comprehensive Metabolic Panel (07/27/19 13:) Creatine Kinase (07/27/19 13:19) Creatine Kinase Mb (07/27/19 13:19) Lactic Acid Analyzer (07/27/19 13:19) Lipase (07/27/19 13:) Magnesium (07/27/19 13:) Protime With Inr (07/27/19 13:) Partial Thromboplastin Time (07/27/19 13:19) Thyroid Analyzer (07/27/19 13:19) Ua Culture If Indicated (07/27/19 13:) Blood Culture (07/27/19 13:) Influenza A And B Antigens (07/27/19 13:) Myoglobin Serum (07/27/19 13:) Troponin I (07/27/19 13:) Ondansetron Injection (Zofran Injectio (07/27/19 13:30) Ed Iv/Invasive Line Start (07/27/19 13:19) Lactated Ringers (Lr 1000 Ml Iv Solution (07/27/19 13:19) Manual Differential (07/27/19 13:20) 1/2 Ns Iv Solution (0.45% Sodium Chlorid (07/27/19 14:30) Urine Culture (07/27/19 15:35) Ceftriaxone For Iv Use (Rocephin For I (07/27/19 16:00) Medications Given in ED Current Medications Medications Dose Ordered Sig/Roni Route Start Time Stop Time Status Last Admin Dose Admin Ceftriaxone Sodium 1000 mg/ Sterile Water 10 ml @ 200 mls/hr ONCE ONCE IV 07/27/19 16:00 07/27/19 16:02 DC 07/27/19 16:28 200 MLS/HR Lactated Ringer's 1,000 ml @ 0 mls/hr Q0M ONCE IV 07/27/19 13:19 07/27/19 13:22 DC 07/27/19 13:47 1,000 MLS/HR Ondansetron HCl 4 mg ONCE ONCE IVP 07/27/19 13:30 07/27/19 13:31 DC 11/11/19 13:47 4 MG Vital Signs/I&O 07/27/19 07/27/19 13:21 16:45 Temp 36.7 36.7 Pulse 83 79 Resp 16 16 B/P (MAP) 112/68 (83) 165/74 (83) Pulse Ox 97 97 O2 Delivery Room Air Room Air Capillary Refill : Less Than 3 Seconds Blood Pressure Mean: 83 POS Progress Note : Progress Note NO SYMPTOMS DURING ER STAY NO DETERIORATION IN PT'S CONDITION DURING ER STAY 0303--DAUGHTER HERE. STATES SHE WON'T GET OUT OF BED FOR THE LAST 5-6 DAYS. "SHE'S BEEN PLAYING THIS CARD FOR MONTHS" "SHE'S UP AND SHE'S DOWN" "SHE'S FINE AND TERMITE EXTERMINATOR NOW". DAUGHTER STATES SHE NEEDS TO GO TO [place] RIGHT NOW, AND WILL BE BACK. SHE HAS AN AUTISTIC SON WITH HER, WHO REQUIRES MUCH CARE/ATTENTION DAUGHTER RETURNS LATER, TEST RESULTS REVIEWED, AND ADVISED HER OF NEED FOR FOLLOW UP WITH DR. EMERSON ADVISED HER THAT SHE WILL NEED TO DISTRIBUTE PT'S MEDICATIONS TO HER, PT IS LEFT TO TAKE HER MEDICATION ON HER OWN AT THIS TIME. ALSO ADVISED THAT SHE WILL NEED TO ENSURE THAT PT IS DRINKING PLENTY OF FLUIDS AND EATING REGULAR MEALS. SHE STATES THAT PT WILL NOT ALLOW HOME HEALTH IN HER HOME ECG Initial ECG Impression Date: Jul 27, 2019 Initial ECG Impression Time: 14:05 Initial ECG Rate: 69 Initial ECG Rhythm: Normal Sinus Initial ECG Impression: Normal Diagnostic Imaging Comments CXR--NO ACUTE PROCESS, PER RADIOLOGIST REPORT AT 1410 Reviewed: Reviewed by Me Departure Communication (Admissions) THIS FACILITY IS ON FULL DIVERSION 0402--CALLED DR. EMERSON'S OFFICE 0410--SPOKE WITH DR. EMERSON, SHE ADVISES THAT PT DOES NOT NEED TO BE ADMITTED/TRANSFERRED AT THIS TIME. SHE WILL SEE PT IN OFFICE THIS WEEK IN FOLLOW UP. Impression Primary Impression: Urinary tract infection Additional Impressions: Dementia Mild dehydration RESOLVING HERPES ZOSTER RIGHT FOREHEAD Disposition: 01 HOME, SELF-CARE Condition: Stable Departure-Patient Inst. Referrals: JACKIE EMERSON MD (PCP/Family) Primary Care Physician Patient Instructions: Urinary Tract Infection, Adult (DC) Add. Discharge Instructions: LOTS OF CLEAR LIQUIDS TAKE YOUR MEDICATIONS PRESCRIBED FOLLOW UP WITH DR. EMERSON IN 2-3 DAYS FOR FURTHER CARE All discharge instructions reviewed with patient and/or family. Voiced understanding. Scripts Sulfamethoxazole/Trimethoprim (Bactrim Ds Tablet) 1 Each Tablet 1 EACH PO BID, #20 TAB Prov: MALI PAINTING DO 07/27/19 MALI PAINTING DO Jul 27, 2019 13:44 POS
[2019-07-27 13:51] LABS: ALANINE AMINOTRANSFERASE 28 U/L (0-55); ALBUMIN 4.2 GM/DL (3.2-4.5); ALKALINE PHOSPHATASE 86 U/L (40-136); AMYLASE 70 U/L (25-125); BILIRUBIN,TOTAL 0.9 MG/DL (0.1-1.0); BUN/CREATININE RATIO 31; CALCIUM 9.9 MG/DL (8.5-10.1); CARBON DIOXIDE 24 MMOL/L (21-32); CHLORIDE 98 MMOL/L (98-107); CREATINE KINASE 106 U/L (29-168); CREATININE SERUM 1.76 MG/DL (0.60-1.30); GFR ESTIMATED 28; GLUCOSE 127 MG/DL (70-105); LIPASE 62 U/L (8-78); MAGNESIUM 2.5 MG/DL (1.6-2.4); SODIUM 134 MMOL/L (135-145); TOTAL PROTEIN 7.5 GM/DL (6.4-8.2)
[2019-07-27 13:59] LABS: BAND NEUTROPHILS 0 %; BASOPHILS % (MANUAL) 0 %; EOSINOPHILS % (MANUAL) 9 %; LYMPHOCYTES % (MANUAL) 16 %; MONOCYTES % (MANUAL) 3 %; NEUTROPHILS % (MANUAL) 72 %; RBC MORPH NORMAL
--- NOTE | 2019-07-27 14:03 | Diagnostic Imaging Report ---
EXAM: CHEST 1 VIEW, AP/PA ONLY INDICATION: Weakness. Fever. COMPARISON: 06/05/2019. FINDINGS: Normal heart size and central pulmonary vascularity. Stable calcified granuloma in the left upper lobe. No new focal pulmonary opacity, pleural effusion or pneumothorax. No acute osseous findings. IMPRESSION: No acute cardiopulmonary findings. Dictated by: Dictated on workstation # [id number]
[2019-07-27 14:12] LABS: CREATINE KINASE MB 5.4 NG/ML (<6.6); TSH (THYROID ANALYZER) 1.45 UIU/ML (0.35-4.94)
[2019-07-27] MEDS ORDERED: 1/2 NS IV SOLUTION 1,000 ML IV SCH (14:30)
[2019-07-27 15:38] LABS: BILIRUBIN,URINE NEGATIVE (NEGATIVE); CLARITY,URINE CLEAR; COLOR,URINE YELLOW; GLUCOSE, URINE (UA) NEGATIVE (NEGATIVE); KETONES,URINE NEGATIVE (NEGATIVE); LEUKOCYTE ESTERASE ,URINE 1+ (NEGATIVE); NITRITE,URINE POSITIVE (NEGATIVE); PROTEIN,URINE NEGATIVE (NEGATIVE)
[2019-07-27 15:55] LABS: BACTERIA,URINE LARGE /HPF; RBC,URINE RARE /HPF
[2019-07-27] MEDS ORDERED: cefTRIAXone FOR IV USE 1,000 MG in WATER (STERILE) FOR INJECTION 10 ML IV ONE (16:00)
[2019-07-27] MEDS ORDERED: SULF1TAB35 PO (16:22)
[2019-07-27 16:45] VITALS: BP 165/74
== END 2019-07-27 16:45 | disposition home or self-care (01) ==
LOC: EDUNIT# 13:12 → ER 13:13
DX: N39.0 Urinary tract infection, site not specified (principal); F03.90 Unspecified dementia, unspecified severity, without behavioral disturbance, psychotic disturbance, mood disturbance, and anxiety; E86.0 Dehydration; B02.9 Zoster without complications; I10 Essential (primary) hypertension; E78.00 Pure hypercholesterolemia, unspecified; Z90.710 Acquired absence of both cervix and uterus; Z90.722 Acquired absence of ovaries, bilateral; Z90.49 Acquired absence of other specified parts of digestive tract; Z98.51 Tubal ligation status
CPT/HCPCS: 36415; 51701; 71045; 80053; 81000; 82150; 82550; 82553; 83605; 83690; 83735; 83874; 83880; 84443; 84484; 85007; 85027; 85610; 85730; 87040; 87077; 87088; 87186; 87804; 93005; 93041